=== PATIENT | female | born 1930 | race Caucasian/White ===

== ENCOUNTER 2016-09-12 00:01 | Outpatient (RCR) ==
[2013-03-14 22:40] VITALS: BMI 25.0
[2016-10-11 08:55] VITALS: BP 152/50
== END 2016-10-12 ==
LOC: CAR.REHAB 00:01
PROVIDERS: ATTEND Internal Medicine
DX: I25.10 Atherosclerotic heart disease of native coronary artery without angina pectoris (principal)
CPT/HCPCS: 93797

== ENCOUNTER 2016-10-13 06:39 | Outpatient (RCR) ==
[2013-03-14 22:40] VITALS: BMI 25.0
[2016-11-08 08:44] VITALS: BP 148/66
== END 2016-11-09 ==
LOC: CAR.REHAB 06:39
PROVIDERS: ATTEND Internal Medicine
DX: I25.10 Atherosclerotic heart disease of native coronary artery without angina pectoris (principal)
CPT/HCPCS: 93797

== ENCOUNTER 2016-11-10 06:43 | Outpatient (RCR) ==
[2013-03-14 22:40] VITALS: BMI 25.0
[2016-12-10 08:53] VITALS: BP 144/58
== END 2016-12-10 ==
LOC: CAR.REHAB 06:43
PROVIDERS: ATTEND Internal Medicine
DX: I25.10 Atherosclerotic heart disease of native coronary artery without angina pectoris (principal)
CPT/HCPCS: 93797

== ENCOUNTER 2016-12-11 07:00 | Outpatient (RCR) ==
[2013-03-14 22:40] VITALS: BMI 25.0
[2017-01-07 08:57] VITALS: BP 138/56
== END 2017-01-09 ==
LOC: CAR.REHAB 07:00
PROVIDERS: ATTEND Internal Medicine
DX: I25.10 Atherosclerotic heart disease of native coronary artery without angina pectoris (principal)
CPT/HCPCS: 93797

== ENCOUNTER 2017-01-10 07:40 | Outpatient (RCR) ==
[2013-03-14 22:40] VITALS: BMI 25.0
[2017-02-09 08:27] VITALS: BP 146/64
== END 2017-02-09 ==
LOC: CAR.REHAB 07:40
PROVIDERS: ATTEND Internal Medicine
DX: I25.10 Atherosclerotic heart disease of native coronary artery without angina pectoris (principal)
CPT/HCPCS: 93797

== ENCOUNTER 2017-02-10 10:06 | Outpatient (RCR) ==
[2013-03-14 22:40] VITALS: BMI 25.0
[2017-03-09 08:55] VITALS: BP 152/52
== END 2017-03-11 ==
LOC: CAR.REHAB 10:06
PROVIDERS: ATTEND Internal Medicine
DX: I25.10 Atherosclerotic heart disease of native coronary artery without angina pectoris (principal)
CPT/HCPCS: 93797

== ENCOUNTER 2017-03-14 06:39 | Outpatient (RCR) ==
[2013-03-14 22:40] VITALS: BMI 25.0
[2017-04-11 08:46] VITALS: BP 134/52
== END 2017-04-11 ==
LOC: CAR.REHAB 06:39
PROVIDERS: ATTEND Internal Medicine
DX: I25.10 Atherosclerotic heart disease of native coronary artery without angina pectoris (principal)
CPT/HCPCS: 93797

== ENCOUNTER 2017-03-31 06:38 | Outpatient (CLI) ==
[2013-03-14 22:40] VITALS: BMI 25.0
--- NOTE | 2017-04-01 10:52 | ECHO2D ---
Date of Exam: 03/31/17 Ordering Physician: JOSUE ST Reason for Echo: CARDIOMEGALY, HYPERTENSION, CAD, S/P STENT, CHF M-Mode Normal Adult Results LV Dimensions Normal Adult Results AoV Opening excursions >1.6 >1.6 LVEDD-base- 3.5-5.8 5.3 Ao root dimensions 2.0-3.7 3.1 LVESD-base- 3.1-4.6 L. Atrium dimensions 1.9-3.8 5.0 Post. Wall thickness 0.8-1.1 1.1 IV septum (thickness) 0.7-1.2 1.0 Post. Wall excursion 0.72-1.3 NORMAL Septal motion NORMAL Systolic motion R. Ventricular cavity 1.5-2.0 NORMAL LVEF 60% 38% Paradoxical septal wall motion NORMAL 2-D : HYPOKINETIC LEFT VENTRICLE--NORMAL VALVES-NO EFFUSION, NO THROMBUS, NORMAL VALVES M-MODE: MV: NORMAL AV: NORMAL TV: NORMAL PV: CHAMBER SIZE: ENLARGED LEFT ATRIAL CAVITY WALL MOTION: HYPOKINETIC LEFT VENTRICLE PERICARDIUM: NORMAL INTERPRETATION: 1. HYPOKINETIC LEFT VENTRICLE--EJECTION FRACTION 38% 2. ENLARGED LEFT ATRIAL CAVITY 3. NORMAL VALVES MTDD
== END 2017-03-31 06:39 | disposition home or self-care (01) ==
LOC: CAR 06:38
PROVIDERS: ATTEND Internal Medicine
DX: R06.02 Shortness of breath (principal); I10 Essential (primary) hypertension; I25.10 Atherosclerotic heart disease of native coronary artery without angina pectoris; Z95.5 Presence of coronary angioplasty implant and graft
CPT/HCPCS: 93005; 93010

== ENCOUNTER 2017-04-12 07:28 | Outpatient (RCR) ==
[2013-03-14 22:40] VITALS: BMI 25.0
[2017-05-11 08:44] VITALS: BP 132/60
== END 2017-05-12 ==
LOC: CAR.REHAB 07:28
PROVIDERS: ATTEND Internal Medicine
DX: I25.10 Atherosclerotic heart disease of native coronary artery without angina pectoris (principal)
CPT/HCPCS: 93797

== ENCOUNTER 2017-05-13 06:55 | Outpatient (RCR) ==
[2013-03-14 22:40] VITALS: BMI 25.0
[2017-06-08 08:46] VITALS: BP 148/52
== END 2017-06-11 ==
LOC: CAR.REHAB 06:55
PROVIDERS: ATTEND Internal Medicine
DX: I25.10 Atherosclerotic heart disease of native coronary artery without angina pectoris (principal)
CPT/HCPCS: 93797

== ENCOUNTER 2017-07-13 06:41 | Outpatient (RCR) ==
[2013-03-14 22:40] VITALS: BMI 25.0
[2017-08-10 08:58] VITALS: BP 142/50
== END 2017-08-11 ==
LOC: CAR.REHAB 06:41
PROVIDERS: ATTEND Internal Medicine
DX: I25.10 Atherosclerotic heart disease of native coronary artery without angina pectoris (principal)
CPT/HCPCS: 93797

== ENCOUNTER 2017-08-12 06:24 | Outpatient (RCR) ==
[2013-03-14 22:40] VITALS: BMI 25.0
[2017-09-09 08:55] VITALS: BP 150/60
== END 2017-09-11 ==
LOC: CAR.REHAB 06:24
PROVIDERS: ATTEND Internal Medicine
DX: I25.10 Atherosclerotic heart disease of native coronary artery without angina pectoris (principal)
CPT/HCPCS: 93797

== ENCOUNTER 2017-09-13 07:32 | Outpatient (RCR) ==
[2013-03-14 22:40] VITALS: BMI 25.0
[2017-10-12 09:09] VITALS: BP 132/60
== END 2017-10-12 ==
LOC: CAR.REHAB 07:32
PROVIDERS: ATTEND Internal Medicine
DX: I25.10 Atherosclerotic heart disease of native coronary artery without angina pectoris (principal)
CPT/HCPCS: 93797

== ENCOUNTER 2017-10-13 07:10 | Outpatient (RCR) ==
[2013-03-14 22:40] VITALS: BMI 25.0
[2017-11-09 09:13] VITALS: BP 148/56
== END 2017-11-09 ==
LOC: CAR.REHAB 07:10
PROVIDERS: ATTEND Internal Medicine
DX: I25.10 Atherosclerotic heart disease of native coronary artery without angina pectoris (principal)
CPT/HCPCS: 93797

== ENCOUNTER 2017-11-10 06:52 | Outpatient (RCR) ==
[2013-03-14 22:40] VITALS: BMI 25.0
[2017-12-09 08:53] VITALS: BP 148/52
== END 2017-12-10 ==
LOC: CAR.REHAB 06:52
PROVIDERS: ATTEND Internal Medicine
DX: I25.10 Atherosclerotic heart disease of native coronary artery without angina pectoris (principal)
CPT/HCPCS: 93797

== ENCOUNTER 2017-12-12 06:25 | Outpatient (RCR) ==
[2013-03-14 22:40] VITALS: BMI 25.0
[2018-01-09 09:20] VITALS: BP 146/58
== END 2018-01-09 23:59 ==
LOC: CAR.REHAB 06:25
PROVIDERS: ATTEND Internal Medicine
DX: I25.10 Atherosclerotic heart disease of native coronary artery without angina pectoris (principal)
CPT/HCPCS: 93797

== ENCOUNTER 2018-01-10 07:17 | Outpatient (RCR) ==
[2013-03-14 22:40] VITALS: BMI 25.0
[2018-02-08 09:06] VITALS: BP 138/52
== END 2018-02-09 23:59 ==
LOC: CAR.REHAB 07:17
PROVIDERS: ATTEND Internal Medicine
DX: I25.10 Atherosclerotic heart disease of native coronary artery without angina pectoris (principal)
CPT/HCPCS: 93797

== ENCOUNTER 2018-02-10 06:46 | Outpatient (RCR) ==
[2013-03-14 22:40] VITALS: BMI 25.0
[2018-03-03 08:48] VITALS: BP 144/58
== END 2018-03-11 23:59 ==
LOC: CAR.REHAB 06:46
PROVIDERS: ATTEND Internal Medicine
DX: I25.10 Atherosclerotic heart disease of native coronary artery without angina pectoris (principal)
CPT/HCPCS: 93797

== ENCOUNTER 2018-03-13 06:42 | Outpatient (RCR) ==
[2013-03-14 22:40] VITALS: BMI 25.0
[2018-04-10 08:48] VITALS: BP 140/56
== END 2018-04-11 23:59 ==
LOC: CAR.REHAB 06:42
PROVIDERS: ATTEND Internal Medicine
DX: I25.10 Atherosclerotic heart disease of native coronary artery without angina pectoris (principal); Z95.5 Presence of coronary angioplasty implant and graft
CPT/HCPCS: 93797

== ENCOUNTER 2018-04-12 06:41 | Outpatient (RCR) ==
[2013-03-14 22:40] VITALS: BMI 25.0
[2018-05-12 08:47] VITALS: BP 114/52
== END 2018-05-12 23:59 ==
LOC: CAR.REHAB 06:41
PROVIDERS: ATTEND Internal Medicine
DX: I25.10 Atherosclerotic heart disease of native coronary artery without angina pectoris (principal)
CPT/HCPCS: 93797

== ENCOUNTER 2018-05-16 07:35 | Outpatient (RCR) ==
[2013-03-14 22:40] VITALS: BMI 25.0
[2018-06-09 09:02] VITALS: BP 146/58
== END 2018-06-11 23:59 ==
LOC: CAR.REHAB 07:35
PROVIDERS: ATTEND Internal Medicine
DX: I25.10 Atherosclerotic heart disease of native coronary artery without angina pectoris (principal); Z95.5 Presence of coronary angioplasty implant and graft
CPT/HCPCS: 93797

== ENCOUNTER 2018-06-12 06:54 | Outpatient (RCR) ==
[2013-03-14 22:40] VITALS: BMI 25.0
[2018-07-12 08:46] VITALS: BP 148/58
== END 2018-07-12 23:59 ==
LOC: CAR.REHAB 06:54
PROVIDERS: ATTEND Internal Medicine
DX: I25.10 Atherosclerotic heart disease of native coronary artery without angina pectoris (principal); Z95.5 Presence of coronary angioplasty implant and graft
CPT/HCPCS: 93797

== ENCOUNTER 2018-08-14 06:54 | Outpatient (RCR) ==
[2013-03-14 22:40] VITALS: BMI 25.0
[2018-09-11 08:52] VITALS: BP 132/52
== END 2018-09-11 23:59 ==
LOC: CAR.REHAB 06:54
PROVIDERS: ATTEND Internal Medicine
DX: I25.10 Atherosclerotic heart disease of native coronary artery without angina pectoris (principal); Z95.5 Presence of coronary angioplasty implant and graft
CPT/HCPCS: 93797

== ENCOUNTER 2018-09-13 06:37 | Outpatient (RCR) ==
[2013-03-14 22:40] VITALS: BMI 25.0
[2018-10-09 08:57] VITALS: BP 138/52
== END 2018-10-12 23:59 ==
LOC: CAR.REHAB 06:37
PROVIDERS: ATTEND Internal Medicine
DX: I25.10 Atherosclerotic heart disease of native coronary artery without angina pectoris (principal); Z95.5 Presence of coronary angioplasty implant and graft
CPT/HCPCS: 93797

== ENCOUNTER 2018-10-13 06:32 | Outpatient (RCR) ==
[2013-03-14 22:40] VITALS: BMI 25.0
[2018-11-08 08:53] VITALS: BP 122/50
== END 2018-11-09 23:59 ==
LOC: CAR.REHAB 06:32
PROVIDERS: ATTEND Internal Medicine
DX: I25.10 Atherosclerotic heart disease of native coronary artery without angina pectoris (principal); Z95.5 Presence of coronary angioplasty implant and graft
CPT/HCPCS: 93797

== ENCOUNTER 2018-11-10 06:22 | Outpatient (RCR) ==
[2013-03-14 22:40] VITALS: BMI 25.0
[2018-12-08 09:02] VITALS: BP 138/56
== END 2018-12-10 23:59 ==
LOC: CAR.REHAB 06:22
PROVIDERS: ATTEND Internal Medicine
DX: I25.10 Atherosclerotic heart disease of native coronary artery without angina pectoris (principal); Z95.5 Presence of coronary angioplasty implant and graft
CPT/HCPCS: 93797

== ENCOUNTER 2018-12-11 06:33 | Outpatient (RCR) ==
[2013-03-14 22:40] VITALS: BMI 25.0
[2019-01-08 08:56] VITALS: BP 122/56
== END 2019-01-09 23:59 ==
LOC: CAR.REHAB 06:33
PROVIDERS: ATTEND Internal Medicine
DX: I25.10 Atherosclerotic heart disease of native coronary artery without angina pectoris (principal); Z95.5 Presence of coronary angioplasty implant and graft
CPT/HCPCS: 93797

== ENCOUNTER 2019-01-10 06:43 | Outpatient (RCR) ==
[2013-03-14 22:40] VITALS: BMI 25.0
[2019-02-09 08:47] VITALS: BP 126/54
== END 2019-02-09 23:59 ==
LOC: CAR.REHAB 06:43
PROVIDERS: ATTEND Internal Medicine
DX: I25.10 Atherosclerotic heart disease of native coronary artery without angina pectoris (principal); Z95.5 Presence of coronary angioplasty implant and graft
CPT/HCPCS: 93797

== ENCOUNTER 2019-03-08 06:31 | Outpatient (CLI) | payer OTHER ==
[2013-03-14 22:40] VITALS: BMI 25.0
--- NOTE | 2019-03-09 08:51 | ECHO2D ---
Date of Exam: 03/08/19 Ordering Physician: DR. JOSUE ST Room #: OP Reason for Echo: CAD, SOB, PAC'S, S/P STENT M-Mode Normal Adult Results LV Dimensions Normal Adult Results AoV Opening excursions >1.6 >1.6 LVEDD-base- 3.5-5.8 4.5 Ao root dimensions 2.0-3.7 3.2 LVESD-base- 3.1-4.6 L. Atrium dimensions 1.9-3.8 4.5 Post. Wall thickness 0.8-1.1 1.3 IV septum (thickness) 0.7-1.2 1.4 Post. Wall excursion 0.72-1.3 NORMAL Septal motion NORMAL Systolic motion R. Ventricular cavity 1.5-2.0 NORMAL LVEF 60% 60% Paradoxical septal wall motion NORMAL 2-D : 2-D M Mode Echocardiogram was performed using apical four chamber and left parasternal long and short axis views. Mitral, tricuspid and aortic valves appear to be normal. Contractility of the left ventricle seems to be normal, so is the cavity size. ENLARGED LEFT ATRIAL CAVITY. Aortic root appears to be normal. There is no pericardial effusion. There is no thrombus noted in the left ventricular or left aortic cavity. No mitral valve prolapse noted. COLOR FLOW SCREENING: MILD AORTIC REGURGITATION AND MITRAL REGURGITATION M-MODE: MV: NORMAL AV: NORMAL TV: NORMAL PV: CHAMBER SIZE: ENLARGED LEFT ATRIAL CAVITY WALL MOTION: NORMAL PERICARDIUM: NORMAL INTERPRETATION: 1. LEFT VENTRICULAR HYPERTROPHY WITH NORMAL LEFT VENTRICULAR HYPERTROPHY 2. NORMAL VALVES 3. MILD AORTIC REGURGITATION AND MITRAL REGURGITATION MTDD
== END 2019-03-08 06:32 | disposition home or self-care (01) ==
LOC: CAR 06:31
PROVIDERS: ATTEND Internal Medicine
DX: R06.02 Shortness of breath (principal); I25.10 Atherosclerotic heart disease of native coronary artery without angina pectoris; I49.1 Atrial premature depolarization; Z95.5 Presence of coronary angioplasty implant and graft
CPT/HCPCS: 93227

== ENCOUNTER 2019-04-12 07:50 | Outpatient (RCR) ==
[2013-03-14 22:40] VITALS: BMI 25.0
[2019-05-11 08:48] VITALS: BP 132/58
== END 2019-05-12 23:59 ==
LOC: CAR.REHAB 07:50
PROVIDERS: ATTEND Internal Medicine
DX: I25.10 Atherosclerotic heart disease of native coronary artery without angina pectoris (principal); Z95.5 Presence of coronary angioplasty implant and graft
CPT/HCPCS: 93797